=== PATIENT | female | born 1990 | race Caucasian/White ===

== ENCOUNTER 2022-10-29 12:01 | Emergency (ER) | payer MEDICAID ==
[~2022-10-29] VITALS: Ht 162.6 cm; Wt 75.0 kg
[~2022-10-29 12:01] MED LIST: NO MEDS
[2022-10-29] MEDS ORDERED: ACETAMINOPHEN 325 MG TABLET PO ONE (16:00)
[2022-10-29 16:49] LABS: COVID AG,FIA SOURCE NASAL SWAB
[2022-10-29 17:16] LABS: INFLUENZA TYPE A NEGATIVE FOR TYPE A (NEGATIVE); INFLUENZA TYPE B NEGATIVE FOR TYPE B (NEGATIVE)
[2022-10-29 17:45] VITALS: BP 129/71
== END 2022-10-29 18:04 | disposition home or self-care (01) ==
LOC: EMS 12:03
DX: R07.89 Other chest pain (principal); Z20.822 Contact with and (suspected) exposure to COVID-19
CPT/HCPCS: 71045; 87804; 93005; 99285